=== PATIENT | male | born 1985 | race Caucasian/White ===

== ENCOUNTER 2020-01-13 21:06 | Inpatient (IN) | payer OTHER ==
[~2020-01-13] VITALS: Ht 177.8 cm; Wt 93.6 kg
[2020-01-13 21:25] VITALS: BP 142/92
[2020-01-13 21:53] VITALS: BP 118/75
[2020-01-13 22:49] LABS: BASO # 0.1 10*3/uL (0.0-0.1); BASO % 1.2 % (0.0-1.0); EOS # 0.1 10*3/uL (0.0-0.4); EOS % 1.6 % (1.0-4.0); HEMATOCRIT 39.7 % (42.0-52.0); LYMPH # 1.1 10*3/uL (1.3-4.4); LYMPH % 23.2 % (27.0-41.0); MEAN CELL VOLUME 93.4 fl (80.0-94.0); MEAN CORPUSCULAR HGB 32.5 pg (27.0-31.0); MEAN CORPUSCULAR HGB CONC 34.8 g/dl (33.0-37.0); MEAN PLATELET VOLUME 10.3 fl (9.6-12.3); MONO # 0.5 10*3/uL (0.1-1.0); NEUT # 3.1 10*3/uL (2.3-7.9); NEUT % 63.8 % (47.0-73.0); PLATELET COUNT AUTOMATED 143 10*3/uL (130-400); RED BLOOD COUNT 4.25 10*6/uL (4.50-5.90); RED CELL DISTRI WIDTH 14.9 % (0-14.5); WHITE BLOOD COUNT 4.9 10*3/uL (4.8-10.8)
[2020-01-13 22:57] VITALS: BP 138/96
[2020-01-13 22:58] LABS: ALBUMIN 3.5 gm/dl (3.1-4.5); ALKALINE PHOSPHATASE 82 U/L (45-117); BUN 6 mg/dl (7-24); CHLORIDE 108 mmol/L (98-107); POTASSIUM 3.6 mmol/L (3.5-5.1); SGOT/AST 47 IU/L (3-35); SGPT/ALT 48 U/L (12-78); SODIUM 143 mmol/L (136-145); TOTAL PROTEIN 6.9 gm/dL (6.4-8.2)
[2020-01-13 23:08] LABS: URINE AMPHETAMINES < 1000 (1000ng/ml); URINE BARBITURATES > 200 (200ng/ml); URINE BENZODIAZEPINES > 200 (200ng/ml); URINE CANNABINOIDS (THC) < 50 (50ng/ml); URINE COCAINE < 300 (300ng/ml); URINE METHADONE < 300 (300ng/ml); URINE OPIATES < 300 (300ng/ml)
[2020-01-13 23:12] LABS: URINE PHENCYCLIDINE < 25 (25ng/ml)
[2020-01-13 23:54] VITALS: BP 117/72
[2020-01-14 00:31] VITALS: BP 144/87
[2020-01-14 00:54] VITALS: BP 134/84; BP 134/87
[2020-01-14] MEDS ORDERED: DULOXETINE HCL60 MG PO (01:05)
[2020-01-14 01:41] LABS: BILIRUBIN NEGATIVE (NEGATIVE); BLOOD NEGATIVE (NEGATIVE); CLARITY CLEAR (CLEAR); COLOR YELLOW (YELLOW); GLUCOSE NEGATIVE (NEGATIVE); KETONE NEGATIVE (NEGATIVE); LEUKO ESTERASE NEGATIVE (NEGATIVE); NITRITE NEGATIVE (NEGATIVE); PH 7.5 (5.0-9.0); SPECIFIC GRAVITY 1.015 (1.005-1.030); UROBILINOGEN 0.2 E.U./dl (0.2-1.0)
[2020-01-14 01:48] LABS: WBC 0-2 wbc/hpf (0-5)
[2020-01-14 08:00] VITALS: BP 112/79
[2020-01-14 12:00] VITALS: BP 139/85
[2020-01-14 16:00] VITALS: BP 141/76
[2020-01-14 20:00] VITALS: BP 119/69
[2020-01-15] VITALS: BP 118/64
[2020-01-15 08:00] VITALS: BP 118/71
[2020-01-15 09:00] VITALS: BP 118/71
[2020-01-15 12:00] VITALS: BP 122/80
[2020-01-15 16:00] VITALS: BP 141/75
[2020-01-15 20:00] VITALS: BP 125/69
[2020-01-16] VITALS: BP 114/71
[2020-01-16 06:17] LABS: BASO % 0.5 % (0.0-1.0); EOS # 0.2 10*3/uL (0.0-0.4); EOS % 5.2 % (1.0-4.0); HEMATOCRIT 38.6 % (42.0-52.0); LYMPH # 1.1 10*3/uL (1.3-4.4); LYMPH % 28.5 % (27.0-41.0); MEAN CELL VOLUME 91.3 fl (80.0-94.0); MEAN CORPUSCULAR HGB 32.4 pg (27.0-31.0); MEAN CORPUSCULAR HGB CONC 35.5 g/dl (33.0-37.0); MONO # 0.3 10*3/uL (0.1-1.0); MONO % 7.1 % (3.0-9.0); NEUT # 2.2 10*3/uL (2.3-7.9); NEUT % 58.4 % (47.0-73.0); PLATELET COUNT AUTOMATED 128 10*3/uL (130-400); RED BLOOD COUNT 4.23 10*6/uL (4.50-5.90); RED CELL DISTRI WIDTH 14.4 % (0-14.5); WHITE BLOOD COUNT 3.8 10*3/uL (4.8-10.8)
[2020-01-16 06:35] LABS: CREATININE 0.93 mg/dL (0.70-1.30)
[2020-01-16 08:00] VITALS: BP 132/70
[2020-01-16 12:00] VITALS: BP 140/85
[2020-01-16 16:00] VITALS: BP 134/75
[2020-01-16 20:00] VITALS: BP 132/89
[2020-01-17] VITALS: BP 132/91
[2020-01-17 08:00] VITALS: BP 106/63
== END 2020-01-17 11:14 | disposition home or self-care (01) | DRG 775 ==
LOC: ED 21:06 → EDHOLD 01-14 00:27 → 5E 01-14 00:27
PROVIDERS: Emergency Medicine; Student in an Organized Health Care Education/Training Program; ADMIT Internal Medicine
DX: F10.229 Alcohol dependence with intoxication, unspecified (principal); F10.239 Alcohol dependence with withdrawal, unspecified; F13.10 Sedative, hypnotic or anxiolytic abuse, uncomplicated; R65.10 Systemic inflammatory response syndrome (SIRS) of non-infectious origin without acute organ dysfunction; Y90.9 Presence of alcohol in blood, level not specified; F17.220 Nicotine dependence, chewing tobacco, uncomplicated; E44.1 Mild protein-calorie malnutrition; E87.2 Acidosis; E87.8 Other disorders of electrolyte and fluid balance, not elsewhere classified; E04.1 Nontoxic single thyroid nodule; D72.810 Lymphocytopenia; D64.9 Anemia, unspecified; F33.2 Major depressive disorder, recurrent severe without psychotic features; F41.9 Anxiety disorder, unspecified; F07.81 Postconcussional syndrome; F43.10 Post-traumatic stress disorder, unspecified; Z71.6 Tobacco abuse counseling; Z79.899 Other long term (current) drug therapy; Z68.29 Body mass index [BMI] 29.0-29.9, adult